=== PATIENT | female | born 1995 | race Caucasian/White ===

== ENCOUNTER 2018-06-06 19:17 | Emergency (ER) | payer OTHER ==
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
[2018-06-06 22:21] LABS: Amorphous Sediment,Urine Rare /hpf; Appearance,Urine Cloudy (Clear); Bilirubin,Urine Negative (Negative); Blood,Urine Negative (Negative); Color,Urine Yellow; Glucose,Urine (UA) Negative (Negative); Ketones,Urine Negative (Negative); Leukocyte Esterase,Urine Small (Negative); Mucus,Urine Rare /hpf; Nitrite,Urine Negative (Negative); Protein,Urine Negative (Negative); Specific Gravity,Urine 1.011 (1.001-1.035); Squamous Epithelial Cell,Urine 1 /hpf (0-4); Urobilinogen,Urine <2.0 mg/dL (<2.0); WBC,Urine 3 /hpf (0-5)
--- NOTE | 2018-06-06 22:28 | XR ---
EXAMINATION TYPE: XR lumbar spine 2 or 3V DATE OF EXAM: 06/06/2018 COMPARISON: NONE HISTORY: Back pain TECHNIQUE: 3 views FINDINGS: Lumbar vertebra have normal spacing and alignment. Posterior elements are intact. Sacroilia c joints appear normal. IMPRESSION: Normal lumbar spine.
--- NOTE | 2018-06-06 22:28 | XR ---
EXAMINATION TYPE: XR pelvis AP view DATE OF EXAM: 06/06/2018 COMPARISON: NONE HISTORY: Pain TECHNIQUE: Single view FINDINGS: There is slight deformity of the left pubic rami related to old healed fractures. I see no acute fracture nor dislocation. Sacroiliac joints are intact. Proximal femurs are intact. IMPRESSION: No acute abnormality of the pelvis.
--- NOTE | 2018-06-06 22:29 | XR ---
EXAMINATION TYPE: XR thoracic spine complete DATE OF EXAM: 06/06/2018 COMPARISON: NONE HISTORY: Back pain TECHNIQUE: 3 views FINDINGS: Thoracic vertebra have normal spacing and alignment. Posterior elements are intact. There i s no paraspinal mass. IMPRESSION: Normal thoracic spine.
[2018-06-06 22:30] LABS: Amphetamine Screen,Urine Not Detected (NotDetected); Barbiturate Screen,Urine Not Detected (NotDetected); Benzodiazepines Screen,Urine Not Detected (NotDetected); Cocaine Screen,Urine Not Detected (NotDetected); Methadone Screen, Urine Not Detected (NotDetected); Opiate Screen,Urine Not Detected (NotDetected); Oxycodone Screen, Urine Not Detected (NotDetected); Phencyclidine Screen,Urine Not Detected (NotDetected); Tricyclic Antidepressant,Urine Not Detected (NotDetected); Urn Cannabinoid Scrn Detected (NotDetected)
[2018-06-06 22:37] VITALS: BP 120/80; PULSE 64; RESP 16; TEMP 98.4
== END 2018-06-06 23:06 | disposition home or self-care (01) ==
LOC: EC 19:17
DX: M54.9 Dorsalgia, unspecified (principal); F17.200 Nicotine dependence, unspecified, uncomplicated; Z87.81 Personal history of (healed) traumatic fracture; Z79.3 Long term (current) use of hormonal contraceptives
CPT/HCPCS: 72072; 72100; 72170; 80306; 81001; 99283